=== PATIENT | male | born 1995 | race Caucasian/White ===

== ENCOUNTER 2017-05-16 12:40 | Emergency (ER) | payer OTHER ==
[~2017-05-16] VITALS: Ht 170.2 cm; Wt 59.0 kg
[~2017-05-16 12:40] MED LIST: IBUPROFEN 800800 M1 PO; LISINOPRIL10 MG PO; NOHOMEMEDICATIONS; PERCOCET 5-3251 EACH PO
[2017-05-16 13:22] LABS: INFLUENZA A ANTIGEN None Detected (None Detect); INFLUENZA B ANTIGEN None Detected (None Detect)
[2017-05-16] MEDS ORDERED: OSELB75 PO (13:34)
[2017-05-16 13:58] VITALS: BP 119/69
== END 2017-05-16 14:00 | disposition home or self-care (01) ==
LOC: M.ERS 12:40
PROVIDERS: Nurse Practitioner Family
DX: J11.1 Influenza due to unidentified influenza virus with other respiratory manifestations (principal); I10 Essential (primary) hypertension; F17.200 Nicotine dependence, unspecified, uncomplicated; Z90.49 Acquired absence of other specified parts of digestive tract

== ENCOUNTER 2017-08-04 20:11 | Emergency (ER) | payer OTHER ==
[~2017-08-04] VITALS: Ht 180.3 cm; Wt 90.7 kg
[~2017-08-04 20:11] MED LIST changes: +OSELB75 PO
[2017-08-04 21:45] VITALS: BP 113/80
== END 2017-08-04 21:46 | disposition home or self-care (01) ==
LOC: M.ERS 20:11
DX: S01.412A Laceration without foreign body of left cheek and temporomandibular area, initial encounter (principal); I10 Essential (primary) hypertension; F17.210 Nicotine dependence, cigarettes, uncomplicated; Z90.49 Acquired absence of other specified parts of digestive tract; X58.XXXA Exposure to other specified factors, initial encounter; Y93.89 Activity, other specified; Y92.89 Other specified places as the place of occurrence of the external cause; Y99.8 Other external cause status

== ENCOUNTER 2020-01-22 18:34 | Emergency (ER) | payer OTHER ==
[~2020-01-22] VITALS: Ht 170.2 cm; Wt 59.0 kg
[2020-01-22] MEDS ORDERED: LOPRESSOR50 MG (19:05)
[2020-01-22] MEDS ORDERED: IBUPROFEN 800800 M1 PO (20:05)
[2020-01-22] MEDS ORDERED: NORCO 5-325 TA1 EAC2 PO (20:05)
[2020-01-22 20:15] VITALS: BP 121/79
== END 2020-01-22 20:15 | disposition home or self-care (01) ==
LOC: M.ERS 18:34
DX: S90.32XA Contusion of left foot, initial encounter (principal); F17.210 Nicotine dependence, cigarettes, uncomplicated; I10 Essential (primary) hypertension; Z90.49 Acquired absence of other specified parts of digestive tract; W22.8XXA Striking against or struck by other objects, initial encounter; Y93.89 Activity, other specified; Y92.89 Other specified places as the place of occurrence of the external cause; Y99.8 Other external cause status

== ENCOUNTER 2020-11-27 16:16 | Emergency (ER) | payer OTHER ==
[~2020-11-27] VITALS: Ht 170.2 cm; Wt 59.0 kg
[~2020-11-27 16:16] MED LIST changes: +LOPRESSOR50 MG; +NORCO 5-325 TA1 EAC2 PO
[2020-11-27 16:33] VITALS: BP 122/89
[2020-11-27] MEDS ORDERED: CIPROFLOXIN HC2.5 M1 OPHTHALMIC (19:13)
== END 2020-11-27 19:34 | disposition home or self-care (01) ==
LOC: M.ERS 16:16
DX: T15.11XA Foreign body in conjunctival sac, right eye, initial encounter (principal); I10 Essential (primary) hypertension; F17.210 Nicotine dependence, cigarettes, uncomplicated; Z90.49 Acquired absence of other specified parts of digestive tract; Z98.890 Other specified postprocedural states; X58.XXXA Exposure to other specified factors, initial encounter; Y93.89 Activity, other specified; Y92.89 Other specified places as the place of occurrence of the external cause; Y99.8 Other external cause status